=== PATIENT | female | born 1955 | race Caucasian/White ===

== ENCOUNTER 2017-10-22 16:29 | Emergency (ER) | payer MEDICARE ==
[2017-10-22] MEDS ORDERED: LIDOCAINE 1% INJ-PF (10 MG/ML) 30 ML SDV INJ ONE (17:27)
--- NOTE | 2017-10-22 17:43 | ER Document Report ---
ED Animal Bite - General Chief Complaint: Dog Bite Stated Complaint: DOG BITE Time Seen by Provider: 10/22/17 17:17 Mode of Arrival: Medic Information source: Patient TRAVEL OUTSIDE OF THE [place] IN LAST 30 DAYS: No - HPI Severity of injury: Bitten Onset: Just prior to arrival Where did incident occur: while walking her dog in her neighborhood Quality of pain: Achy Pain Level: 3 Severity: Moderate Context of attack: Other - see summary Summary of what happened: neighbors 3 dogs (2 pits and on great adriana) were outside unleashed when she was walking her dog and they attacked Type of animal: Dog Appearance of animal: Appeared well Animal's immunizations: UTD Notes: Patient complains of a laceration to her right nares, right upper lip. Patient also has punctures and abrasions to the hands bilaterally as well as the posterior left auricle and to her arms. Patient denies any loss of consciousness or head injury otherwise. Aside from the soreness to the bite meade and abrasions, she does not have any other concerns or complaints. Patient is not on any blood thinners aside from a baby aspirin once daily. Patient states that she is able to move all of her extremities without any difficulties. Patient is ambulatory without any problems. Denies any headache , fever, neck pain, changes in vision/speech/mentation/hearing, URI, sore throat , chest pain, palpitations, syncope, cough, shortness of breath, wheeze, dyspnea , abdominal pain, nausea/vomiting/diarrhea, urinary retention, dysuria, hematuria, loss of control of bowel or bladder, numbness/tingling, saddle anesthesia, muscle paralysis/weakness, or rash. - Related Data Allergies/Adverse Reactions: Penicillins Adverse Reaction (Intermediate, Verified 10/22/17 16:34) rash Past Medical History - Social History Smoking Status: Unknown if Ever Smoked Family History: Reviewed & Not Pertinent Neurological Medical History: Reports: Hx Migraine Past Surgical History: Reports: Hx Hysterectomy - Immunizations Hx Diphtheria, Pertussis, Tetanus Vaccination: Yes Review of Systems - Review of Systems Notes: REVIEW OF SYSTEMS: CONSTITUTIONAL : Denies fever, chills, or sweats. Denies recent illness. EENT: see hpi CARDIOVASCULAR: Denies chest pain. Denies palpitations or racing or irregular heart beat. Denies ankle edema. RESPIRATORY: Denies cough, cold, or chest congestion. Denies shortness of breath, difficulty breathing, or wheezing. GASTROINTESTINAL: Denies abdominal pain or distention. Denies nausea, vomiting , or diarrhea. Denies blood in vomitus, stools, or per rectum. Denies black, tarry stools. Denies constipation. GENITOURINARY: Denies difficulty urinating, painful urination, burning, frequency, blood in urine, or discharge. MUSCULOSKELETAL: see hpi SKIN: see hpi NEUROLOGICAL: Denies confusion or altered mental status. Denies passing out or loss of consciousness. Denies dizziness or lightheadedness. Denies headache. Denies weakness or paralysis or loss of use of either side. Denies problems with gait or speech. Denies sensory loss, numbness, or tingling. Denies seizures. ALL OTHER SYSTEMS REVIEWED AND NEGATIVE. Dictation was performed using Tellyo recognition software Physical Exam - Vital signs Notes: PHYSICAL EXAMINATION: GENERAL: Well-appearing, well-nourished and in no acute distress. A&Ox4 HEAD: Atraumatic, normocephalic. Non-tender. No perera sign--see face exam. EYES: Pupils equal round and reactive to light, extraocular movements intact, sclera anicteric, conjunctiva are normal. No raccoon eyes/entrapment ENT: EAC clear b/l. TM's intact b/l without erythema, fluid, or perforation. Nares patent and without discharge. oropharynx clear without exudates. No tonsilar hypertrophy or erythema. Moist mucous membranes. No sinus tenderness. No hemotympanum/CSF discharge. Face: There is a 1.5cm irregular laceration to the upper lip through the vermilion border, but not through to the teeth. There is also a 1cm irregular flap laceration to the rt distal nares. There is a 0.5cm puncture wound ( generally close) to the posterior left auricle. There are several small abrasions and scratches to the face otherwise. NECK: Normal range of motion, supple without lymphadenopathy. No rigidity. No midline tenderness. Chest: No flail chest. equal rise/fall. Non-tender LUNGS: Breath sounds clear to auscultation bilaterally and equal. No wheezes rales or rhonchi. HEART: Regular rate and rhythm without murmurs, rubs, gallops. ABDOMEN: Soft, nontender, nondistended abdomen. No guarding, no rebound. No masses appreciated. Normal bowel sounds present. No CVA tenderness bilaterally. Musculoskeletal: Ext b/l: FROM to passive/active. Strength 5+/5. No deficits noted. No bony tenderness of extremities. + 2-3 small punctures and abrasions to the hands b/l. + abrasions/scratches to the wrists and arms b/l. Back: FROM to passive/active. Strength 5+/5. No vertebral point tenderness, stepoffs, or deformities. No other bony tenderness or ecchymosis. Extremities: No cyanosis, clubbing, or edema b/l. Peripheral pulses 2+. Capillary refill less than 2 seconds. NEUROLOGICAL: MMSE intact. Cranial nerves grossly intact. Normal speech, normal gait. Normal sensory, motor exams. Reflexes 2+ b/l. NAIDA's negative. Pronator drift negative. PSYCH: Normal mood, normal affect. SKIN: see exams above. Otherwise; Warm, Dry, normal turgor, no rashes or lesions noted. Course - Re-evaluation Re-evalutation: 10/22/17 17:43 Due to anatomical positioning of the lacerations that need closure, I consulted with Dr. Fierro who advised me to call Dr. Ruiz, then Sander, then consult with one of the other ED physicians if they are unable to assist. Currently waiting for a call back from Dr. Bernal. Dr. Boucher declined 10/22/17 18:35 Dr. Pizarro assisted/directed the closure. Dr. Pizarro performed the initial ezekiel border closure and initial nares approximation. 10/22/17 18:48 Patient is an afebrile, well-hydrated, 62-year-old female who presents the ED with a dog bite to her face and extremities some of which required laceration repair there on the face. Vitals are stable. PE is otherwise unremarkable for any neurovascular compromise, obvious tendon/ligament rupture, obvious fracture or dislocation, or foreign body. No imaging warranted at this time based on H& P. Wound edges were approximated appropriately utilizing a total of 9 simple interrupted sutures of Vicryl 5-0 to the face on 3 separate lacerations as well as Dermabond to the posterior left ear. Patient was given morphine 15 mg p.o. and a Tdap today. I will be sending her home with a prescription for doxycycline to take as directed. Wound dressing was placed and wound instructions reviewed. Recheck with your PCM in 3-5 days. Return to the ED with any worsening/concerning symptoms otherwise as reviewed discharge. Patient is in agreement. Procedures - Laceration/Wound Repair lip Time completed: 18:45 Wound length (cm): 1.5 Wound's Depth, Shape: Superficial, Irregular Laceration pre-procedure: Sterile PPE donned, Sterile drapes applied, Other - chlorhexadine Anesthetic type: 1% Lidocaine Volume Anesthetic (mLs): 3 Wound explored: Clean, No foreign body removed Irrigated w/ Saline (mLs): 20 Wound Debrided: Minimal Wound Repaired With: Sutures Suture Size/Type: 5:0, Vicryl Number of Sutures: 4 Layer Closure?: No Post-procedure wound care: Sterile dressing applied Post-procedure NV exam normal: Yes Complications: No rt nare Wound length (cm): 1 Wound's Depth, Shape: Superficial, Irregular, Flap Laceration pre-procedure: Sterile PPE donned, Sterile drapes applied, Other - chlorhexadine Anesthetic type: 1% Lidocaine Volume Anesthetic (mLs): 2 Wound explored: Clean, No foreign body removed Irrigated w/ Saline (mLs): 20 Wound Debrided: Minimal Wound Repaired With: Sutures Suture Size/Type: 5:0, Vicryl Number of Sutures: 3 Layer Closure?: No Post-procedure wound care: Sterile dressing applied Post-procedure NV exam normal: Yes Complications: No nose Time completed: 18:45 Wound length (cm): 1 Wound's Depth, Shape: Superficial, Linear Laceration pre-procedure: Sterile PPE donned, Sterile drapes applied, Other - chlorhexadine Anesthetic type: 1% Lidocaine Volume Anesthetic (mLs): 2 Wound explored: Clean, No foreign body removed Irrigated w/ Saline (mLs): 20 Wound Debrided: Minimal Wound Repaired With: Sutures Suture Size/Type: 5:0, Vicryl Number of Sutures: 2 Layer Closure?: No Post-procedure wound care: Sterile dressing applied Post-procedure NV exam normal: Yes Complications: No posterior left auricle Time completed: 18:45 Wound length (cm): 1 Wound's Depth, Shape: Superficial, Linear Wound explored: Clean, No foreign body removed Irrigated w/ Saline (mLs): 20 Wound Debrided: none Wound Repaired With: Dermabond Post-procedure NV exam normal: Yes Complications: No Discharge - Discharge Clinical Impression: Dog bite Qualifiers: Encounter type: initial encounter Qualified Code(s): W54.0XXA - Bitten by dog, initial encounter Face lacerations Qualifiers: Encounter type: initial encounter Qualified Code(s): S01.81XA - Laceration without foreign body of other part of head, initial encounter Condition: Stable Disposition: HOME, SELF-CARE Instructions: Laceration Care ([facility]), Prophylactic Antibiotic ([facility]), Tetanus Immunization Given ([facility]), Soap Cleansing ([facility]), Antibiotic Ointment Protection ( [facility]) Additional Instructions: Do not shower or bathe for 24 hours. After 24 hours you may shower but no submersion of the wound under water. Keep the original dressing on the wound for 24 hours unless the drainage soaks through. Change the dressing daily thereafter. You may leave the wound open to the air once there is no more discharge. See your PCM in 3-5 days for a recheck. Monitor for any signs of worsening pain or redness, purulent drainage, streaks, and/or fever. Return to the ED if noticing any of the above symptoms or as needed. Take medications as directed. Your sutures are absorable and will go away on their own. Prescriptions: Doxycycline Hyclate 100 mg PO BID #20 capsule Forms: Elevated Blood Pressure Referrals: [facility] [Provider Group] - Follow up as needed [facility] [Provider Group] - Follow up as needed
[2017-10-22] MEDS ORDERED: DIPH/PERTUSS(ACELL)/TETANUS VAC/PF 0.5 ML SYR (>=10YO) IM ONE (18:06)
[2017-10-22] MEDS ORDERED: MORPHINE SULFATE IR 15 MG TABLET PO ONE (18:06)
[2017-10-22 19:12] VITALS: BP 137/71
== END 2017-10-22 19:12 | disposition home or self-care (01) ==
LOC: ER 16:29
PROC: 0HQ3XZZ Repair Left Ear Skin, External Approach (ICD-10-PCS; principal; 2017-10-22)
PROC: 0CQ0XZZ Repair Upper Lip, External Approach (ICD-10-PCS; 2017-10-22)
PROC: 09QKXZZ Repair Nasal Mucosa and Soft Tissue, External Approach (ICD-10-PCS; 2017-10-22)
DX: S01.81XA Laceration without foreign body of other part of head, initial encounter (principal); S01.21XA Laceration without foreign body of nose, initial encounter; S01.511A Laceration without foreign body of lip, initial encounter; S60.512A Abrasion of left hand, initial encounter; S60.511A Abrasion of right hand, initial encounter; W54.0XXA Bitten by dog, initial encounter
CPT/HCPCS: 99283; 90471; 90715; 12013; J3490; A9270

== ENCOUNTER 2019-10-25 16:28 | Emergency (ER) | payer MEDICARE ==
[2019-10-25 16:39] VITALS: BP 137/63
--- NOTE | 2019-10-25 17:02 | ER Document Report ---
HPI - HPI Time Seen by Provider: 10/25/19 16:51 Pain Level: 3 Notes: Patient is a 64-year-old female who presents complaining of cat bite to her right anterior midforearm at 10 AM today. Patient states that she has had some redness and swelling since then with discomfort associated. She does have an allergy to penicillins. Her last tetanus was updated 2 years ago. She is otherwise able to eat and drink without difficulty. She is urinating normally. She is able to move her hand and wrist without difficulties. Denies any headache, fever, URI, sore throat, chest pain, palpitations, syncope, cough, shortness of breath, wheeze, dyspnea, abdominal pain, nausea/vomiting/diarrhea, urinary retention, dysuria, hematuria, loss of control of bowel or bladder, numbness/tingling, saddle anesthesia, muscle paralysis/weakness. - ROS Systems Reviewed and Negative: Yes All other systems reviewed and negative - REPRODUCTIVE Reproductive: DENIES: : Past Medical History - Social History Smoking Status: Never Smoker Chew tobacco use (# tins/day): No Frequency of alcohol use: None Drug Abuse: None Family History: Reviewed & Not Pertinent Patient has suicidal ideation: No Patient has homicidal ideation: No Neurological Medical History: Reports: Hx Migraine Renal/ Medical History: Denies: Hx Peritoneal Dialysis Psychiatric Medical History: Reports: Hx Depression Past Surgical History: Reports: Hx Hysterectomy - Immunizations Hx Diphtheria, Pertussis, Tetanus Vaccination: Yes Vertical Provider Document - CONSTITUTIONAL Agree With Documented VS: Yes Notes: PHYSICAL EXAMINATION: GENERAL: Well-appearing, well-nourished and in no acute distress. HEAD: Atraumatic, normocephalic. NECK: Normal range of motion, supple without lymphadenopathy. No midline tenderness. LUNGS: Breath sounds clear to auscultation bilaterally and equal. No wheezes rales or rhonchi. HEART: Regular rate and rhythm without murmurs, rubs, gallops. Musculoskeletal: Rt UE: + 4 puncture teeth meade noted with site erythema and warmth. No streaks or purulence noted. No fluctuance or induration. No ecchymosis or deformity noted. N/V intact distal. FROM to passive/active. Strength 5+/5. No scaphoid tenderness. No other bony tenderness. Extremities: No cyanosis, clubbing, or edema b/l. Peripheral pulses 2+. Capillary refill less than 3 seconds. NEUROLOGICAL: Normal speech, normal gait. Normal sensory, motor exams otherwise unremarkable PSYCH: Normal mood, normal affect. SKIN: see above. No rash - INFECTION CONTROL TRAVEL OUTSIDE OF THE [place] IN LAST 30 DAYS: No Course - Re-evaluation Re-evalutation: 10/25/19 16:58 Patient is an afebrile, well-hydrated, 64-year-old female who presents to the ED with cat bite right forearm. Vitals are acceptable without any significant tachycardia, tachypnea, or hypoxia. PE is otherwise unremarkable for any neurovascular compromise, obvious tendon/ligament rupture, obvious fracture/dislocation, septic joint. Patient is nontoxic-appearing. No other labs or imaging warranted at this time based on H&P. Patient is allergic to penicillins so I will place her on clindamycin and Bactrim. Conservative measures otherwise for symptoms. Recheck with your PCM in 3-5 days. Consider consult orthopedics. Return to the ED with any worsening/concerning symptoms otherwise as reviewed in discharge. Patient is in agreement. - Vital Signs Vital signs: Temp Pulse Resp BP Pulse Ox 98.4 F 85 20 137/63 H 98 10/25/19 16:39 10/25/19 16:39 10/25/19 16:39 10/25/19 16:39 10/25/19 16:39 Discharge - Discharge Clinical Impression: Cat bite Qualifiers: Encounter type: initial encounter Qualified Code(s): W55.01XA - Bitten by cat, initial encounter Condition: Stable Disposition: HOME, SELF-CARE Instructions: Animal Bites ([facility]) Additional Instructions: Keep the skin clean Wash with soap and water Tylenol/ibuprofen if needed Epson salt soaks Triple antibiotic ointment daily Take medication as directed Monitor for any worsening symptoms Recheck with your PCM in 3-5 days Consider consult with General Surgeon for ongoing/worsening symptoms Return to the ED with any worsening symptoms and/or development of fever, headache, chest pain, palpitations, syncope, shortness of breath, trouble breathing, abdominal pain, n/v/d, abscess, purulent discharge, red streaks, worsening swelling, or other worsening symptoms that are concerning to you. Prescriptions: Sulfamethoxazole/Trimethoprim [Bactrim Ds Tablet] 1 each PO BID #20 tablet Clindamycin HCl 300 mg PO QID #40 capsule Forms: Elevated Blood Pressure Referrals: BIA HERNANDEZ JR, DO [ACTIVE PROVISIONAL STAFF] - Follow up as needed YOEL TAPIA MD [ACTIVE STAFF] - Follow up as needed
== END 2019-10-25 17:45 | disposition home or self-care (01) ==
LOC: ER 16:28
DX: S51.851A Open bite of right forearm, initial encounter (principal); W55.01XA Bitten by cat, initial encounter
CPT/HCPCS: 99283